=== PATIENT | male | born 1935 | race Caucasian/White ===

== ENCOUNTER → 2021-04-14 | Outpatient (CLI) | payer MEDICARE | LOC: M.ULTRA 15:30 | PROVIDERS: ATTEND Family Medicine | DX: S40.021A Contusion of right upper arm, initial encounter (principal); R58 Hemorrhage, not elsewhere classified; X58.XXXA Exposure to other specified factors, initial encounter; Y93.89 Activity, other specified; Y92.89 Other specified places as the place of occurrence of the external cause; Y99.8 Other external cause status ==